=== PATIENT | female | born 1995 | race Caucasian/White ===

== ENCOUNTER → 2024-01-29 | Outpatient (CLI) | payer SELFPAY ==
[2024-01-29 19:14] LABS: CLUE CELLS PRESENT (Not Observd)
== END ==
LOC: LAB 18:35
PROVIDERS: Nurse Practitioner Family
DX: Z20.2 Contact with and (suspected) exposure to infections with a predominantly sexual mode of transmission (principal)
CPT/HCPCS: Q0111